=== PATIENT | female | born 1985 | race Caucasian/White ===

== ENCOUNTER → 2023-06-28 | Emergency (ER) | payer BC ==
[~2023-06-28] VITALS: Ht 154.9 cm; Wt 102.1 kg
[2023-06-28 12:19] LABS: PH,URINE 6.5 (5.0-8.0); URINE APPEARANCE Cloudy; URINE BILIRRUBIN Negative (NEGATIVE); URINE BLOOD Large; URINE COLOR Yellow; URINE GLUCOSE Negative (NEGATIVE); URINE LEUKOCYTE Large; URINE NITRATE Positive; URINE PROTEIN Trace (NEGATIVE); URINE UROBILINOGEN 0.2 E.U./dl
[2023-06-28 12:23] LABS: URINE RBC 287.7 uL (0.0-20.8)
[2023-06-28 12:38] LABS: HEMATOCRIT 39.9 % (36.0-45.00); HEMOGLOBIN 12.7 g/dL (12.0-15.00); MEAN CELL VOLUME 77.9 fL (80.00-100.00); MEAN CORPUSCULAR HEMOGLOBIN 24.7 pg (27.00-32.0); MEAN CORPUSCULAR HGB CONC 31.8 g/dl (32.0-36.0); PLATELET COUNT 343 K/uL (150-450); RED BLOOD COUNT 5.12 M/uL (4.00-6.00); RED CELL DISTRIBUTION WIDTH 17.1 % (11.5-14.5)
[2023-06-28 13:06] LABS: CALCIUM 9.5 mg/dL (8.5-10.1); CREATININE SERUM 0.78 mg/dL (0.55-1.02); GFR 83.1; POTASSIUM 3.83 mEq/L (3.5-5.1)
[2023-06-28 13:12] LABS: URINE BACTERIA > 9821.2 uL (0.0-1933)
== END | disposition left against medical advice (07) ==
LOC: ER 09:13
PROVIDERS: General Practice
DX: R30.9 Painful micturition, unspecified (principal)